=== PATIENT | female | born 1955 | race African-American/Black ===

== ENCOUNTER 2016-06-12 11:47 | Emergency (ER) | payer OTHER ==
[~2016-06-12] VITALS: Ht 165.1 cm; Wt 95.3 kg
[2016-06-12] MEDS ORDERED: NORCO 10-325 T1 EACH ORAL (12:07)
--- NOTE | 2016-06-12 12:19 | Emergency Room Report ---
History of Present Illness General Chief Complaint: Pain Source: Patient Present Illness HPI The patient is a 60-year-old female presenting with left wrist pain which began one week prior. The patient states that she fell onto the wrist, went to [facility] emergency department, and was diagnosed with a fracture. The patient was placed in a splint and given pain medications and was told to followup with orthopedic doctor. The patient states that she has been unable to followup with orthopedics due to insurance issues. The patient states that the pain medications ran out today and pain as a 10 out of 10 throbbing sensation localized to the wrist. Patient denies numbness or tingling. Allergies: Coded Allergies: No Known Allergies (Unverified , 06/12/16) Patient History Past Medical History: see triage record Pertinent Family History: none Reviewed Nursing Documentation: PMH: Agreed, PSxH: Agreed Nursing Documentation-PMH Past Medical History: No Stated History Review of Systems All Other Systems: negative except mentioned in HPI Physical Exam Vital Signs Date Time Temp Pulse Resp B/P Pulse Ox O2 Delivery O2 Flow Rate FiO2 06/12/16 12:02 98.1 80 16 105/68 98 Room Air Sp02 EP Interpretation: reviewed, normal General Appearance: no apparent distress, alert, GCS 15, non-toxic Head: normocephalic, atraumatic Eyes: bilateral eye PERRL, bilateral eye normal inspection Musculoskeletal: digits/nails normal, decreased range of motion - Of L wrist, swelling - Minimal swelling of L wrist, tender - TTP over L mid wrist Neurologic: alert, oriented x3, responsive, motor strength/tone normal, sensory intact, speech normal Psychiatric: judgement/insight normal, memory normal, mood/affect normal, no suicidal/homicidal ideation Skin: normal color, no rash, warm/dry, palpation normal, well hydrated, normal turgor Medical Decision Making PA Attestation Dr. Hugo is my supervising physician. Patient management was discussed with my supervising physician Diagnostic Impression: Primary Impression: Wrist fracture, left ER Course The patient is a 60-year-old female presenting for continued pain due to a wrist fracture which was diagnosed one week prior. Differential diagnosis considered: Compartment syndrome, sprain, fracture, cellulitis, abscess Physical exam: No apparent distress Left wrist: Dressings removed. There is minimal edema over the left wrist. Tender to palpation over the mid wrist. Decreased range of motion of the wrist. Full active range of motion of the fingers. Sensation intact to light touch. Skin is intact. No discoloration. The existing splint is re-dressed. Patient will be DC'ed home with prescription for limited [place] and will FU with PMD/orthopedics. ER precautions given Last Vital Signs Date Time Temp Pulse Resp B/P Pulse Ox O2 Delivery O2 Flow Rate FiO2 06/12/16 12:02 98.1 80 16 105/68 98 Room Air Status: improved Disposition: HOME, SELF-CARE Condition: Improved Scripts Hydrocodone Bit/Acetaminophen 5-325* (NORCO 5-325 TABLET*) 1 Each Tablet 1 TAB ORAL Q4H Y for For Pain, #15 TAB Prov: GIRMA MOLINA 06/12/16 GIRMA MOLINA Jun 12, 2016 12:19
[2016-06-12] MEDS ORDERED: NORCO 5-325 TA1 EAC1 ORAL (12:35)
[2016-06-12 12:55] VITALS: BP 117/80
== END 2016-06-12 12:55 | disposition home or self-care (01) ==
LOC: EMR 12:15
DX: S62.102D Fracture of unspecified carpal bone, left wrist, subsequent encounter for fracture with routine healing (principal)
CPT/HCPCS: 99283